=== PATIENT | female | born 1990 | race Caucasian/White ===

== ENCOUNTER 2025-02-11 12:16 | Emergency (ER) | payer OTHER ==
[~2025-02-11] VITALS: Ht 165.1 cm; Wt 73.0 kg
[2025-02-11 12:33] VITALS: O2SAT 100
[2025-02-11 14:24] LABS: HCG SCREEN NEGATIVE
[2025-02-11 14:58] LABS: CLARITY URINE CLEAR (CLEAR); COLOR URINE DARK YELLOW (YELLOW); GLUCOSE URINE NEGATIVE (NEGATIVE); KETONES URINE NEGATIVE (NEGATIVE); LEUKOCYTE ESTERASE URINE TRACE (NEGATIVE); NITRITE URINE POSITIVE (NEGATIVE); OCCULT BLOOD URINE 2+ (NEGATIVE); PH URINE 5.5 (4.5-8.0); PROTEIN URINE NEGATIVE (NEGATIVE); SPECIFIC GRAVITY URINE 1.009 (1.005-1.030); UROBILINOGEN URINE 1.0 E.U./dL (0.2-1.0)
[2025-02-11 15:12] LABS: MUCUS URINE TRACE /lpf (< = 2+)
[2025-02-11 15:13] LABS: SQUAMOUS EPITHELIAL CELL URINE FEW /lpf (RARE/1+)
[2025-02-11 15:14] LABS: BACTERIA URINE TRACE
[2025-02-11] MEDS ORDERED: CEFP200T13 MT (15:22)
[2025-02-11 15:30] VITALS: BP 107/72; PULSE 84; RESP 17; TEMP 36.5; O2SAT 100
== END 2025-02-11 15:32 | disposition home or self-care (01) ==
LOC: ER 12:16
DX: N39.0 Urinary tract infection, site not specified (principal); Z90.49 Acquired absence of other specified parts of digestive tract; Z98.890 Other specified postprocedural states
CPT/HCPCS: 81003; 84703; 99283